=== PATIENT | female | born 1965 | race Caucasian/White ===

== ENCOUNTER 2021-09-25 07:42 | Emergency (ER) | payer MEDICAID ==
[~2021-09-25] VITALS: Ht 165.1 cm; Wt 68.0 kg
[~2021-09-25 07:42] MED LIST: CLON1TAB; OXYCODONE-ACETAMINOPHEN
[2021-09-25 08:19] VITALS: BP 124/76
[2021-09-25] MEDS ORDERED: methylPREDNISolone SOD SUCC 125 MG/2 ML VL IM ONE (08:30)
[2021-09-25] MEDS ORDERED: TRIA0.02 TOP (08:38)
[2021-09-25] MEDS ORDERED: CEPH-509 PO (08:38)
[2021-09-25] MEDS ORDERED: CIP03OS RIGHTEYE (08:38)
== END 2021-09-25 08:56 | disposition home or self-care (01) ==
LOC: ER 07:42
DX: H11.31 Conjunctival hemorrhage, right eye (principal); L23.9 Allergic contact dermatitis, unspecified cause; F17.210 Nicotine dependence, cigarettes, uncomplicated; Z90.710 Acquired absence of both cervix and uterus; Z88.1 Allergy status to other antibiotic agents; Z88.6 Allergy status to analgesic agent
CPT/HCPCS: 96372; 99283; J2930

== ENCOUNTER 2022-07-16 12:15 | Emergency (ER) | payer MEDICAID ==
[~2022-07-16] VITALS: Ht 165.1 cm; Wt 70.5 kg
[~2022-07-16 12:15] MED LIST changes: +CEPH-509 PO; +CIP03OS RIGHTEYE; +TRIA0.02 TOP
[2022-07-16 13:10] LABS: Basophils # (auto) 0 10 ^3/uL (0-0.2); Basophils % (auto) 0.6 % (0.0-2.0); Eosinophils # (auto) 0.2 10 ^3/uL (0-0.8); Eosinophils % (auto) 4.1 % (0.0-7.0); Hematocrit 40.6 % (36.0-46.0); Hemoglobin 13.5 g/dL (12.2-16.2); Lymphocytes # (auto) 1.4 10 ^3/uL (0.4-5.4); Lymphocytes % (auto) 22.9 % (10.0-50.0); Mean Corpuscular Hemoglobin 32.2 pg (28.0-32.0); Mean Corpuscular Hgb Conc. 33.3 g/dL (32.0-36.0); Mean Corpuscular Volume 96.7 fL (80.0-100.0); Monocytes # (auto) 0.6 10 ^3/uL (0-1.3); Neutrophils # (auto) 3.8 10 ^3/uL (1.6-8.6); Neutrophils % (auto) 62.4 % (37.0-80.0); Red Cell Distribution Width 13.8 % (11.8-14.3)
[2022-07-16 13:19] LABS: INR 0.91 (0.9-1.15); Partial Thromboplastin Time 29.6 sec (24.6-33.4)
[2022-07-16 13:22] LABS: Potassium 3.9 mmol/L (3.5-5.1)
[2022-07-16 13:31] LABS: BUN/Creatinine Ratio 21.6 (10.0-20.0); Bilirubin, Total 0.4 mg/dL (0.2-1.0); Calcium 8.8 mg/dL (8.5-10.1); Magnesium 2.5 mg/dL (1.6-2.6); Total Protein 7.2 g/dL (6.4-8.2)
[2022-07-16 14:44] VITALS: BP 130/70
== END 2022-07-16 14:45 | disposition home or self-care (01) ==
LOC: ER 12:15
DX: R00.2 Palpitations (principal); K21.9 Gastro-esophageal reflux disease without esophagitis; Z90.710 Acquired absence of both cervix and uterus; Z87.891 Personal history of nicotine dependence; Z88.6 Allergy status to analgesic agent; Z88.1 Allergy status to other antibiotic agents; Z79.899 Other long term (current) drug therapy
CPT/HCPCS: 36415; 71045; 80053; 83735; 84484; 85025; 85610; 85730; 93005